=== PATIENT | male | born 2000 | race Hispanic/Latino ===

== ENCOUNTER 2021-02-13 00:20 | Emergency (ER) | payer MEDICAID, OTHER ==
[2021-02-13 00:51] LABS: BASOPHILS % (AUTO) 0.9 % (0.0-5.0); HEMATOCRIT 35.1 % (42-54); LYMPHOCYTES % (AUTO) 27.6 % (21.0-51.0); MEAN CORPUSCULAR HEMOGLOBIN 18.3 pg (27.0-33.0); MEAN CORPUSCULAR HGB CONC 27.9 g/dL (32.0-36.0); MEAN CORPUSCULAR VOLUME 65.5 fL (79-99); MONOCYTES % (AUTO) 8.1 % (3.0-13.0); PLATELET COUNT (AUTO) 527 K/uL (130-400); RED BLOOD CELL COUNT(AUTO) 5.36 MIL/uL (4.50-6.20); RED CELL DISTRIBUTION WIDTH 16.1 % (11.0-15.5); WHITE BLOOD COUNT (AUTO) 8.1 K/uL (4.8-10.8)
[2021-02-13 00:57] LABS: INR 0.99 (0.85-1.15); PROTHROMBIN TIME 10.8 SEC (9.6-11.6)
[2021-02-13 00:58] LABS: PARTIAL THROMBOPLASTIN TIME 26.8 SEC (26.3-35.5)
[2021-02-13 01:09] LABS: ALBUMIN 3.7 g/dL (3.5-5.0); BILIRUBIN,TOTAL 0.1 mg/dL (0.2-1.0); CREATININE 0.9 mg/dL (0.5-1.5); POTASSIUM 3.7 mmol/L (3.5-5.1); TOTAL PROTEIN, SERUM 8.3 g/dL (6.0-8.3)
== END 2021-02-13 03:06 | disposition home or self-care (01) ==
LOC: EDH 00:20
DX: K63.5 Polyp of colon (principal); K92.1 Melena
CPT/HCPCS: 36415; 80053; 85025; 85610; 85730

== ENCOUNTER 2022-11-03 22:19 | Emergency (ER) | payer OTHER ==
[~2022-11-03] VITALS: Ht 172.7 cm; Wt 68.0 kg
[2022-11-03 22:21] VITALS: BP 124/73
[2022-11-03] MEDS ORDERED: 0.9%NACL 1000ML 1,000 ML IV ONE (22:30)
[2022-11-03 22:59] LABS: BASOPHILS % (AUTO) 0.9 % (0.0-5.0); EOSINOPHILS % (AUTO) 2.4 % (0.0-8.0); HEMATOCRIT 34.9 % (42-54); LYMPHOCYTES % (AUTO) 26.3 % (21.0-51.0); MEAN CORPUSCULAR HEMOGLOBIN 19.4 pg (27.0-33.0); MEAN CORPUSCULAR HGB CONC 28.7 g/dL (32.0-36.0); MEAN CORPUSCULAR VOLUME 67.6 fL (79-99); MONOCYTES % (AUTO) 7.1 % (3.0-13.0); NEUTROPHILS % (AUTO) 62.9 % (40.0-77.0); PLATELET COUNT (AUTO) 555 K/uL (130-400); RED BLOOD CELL COUNT(AUTO) 5.16 MIL/uL (4.50-6.20); WHITE BLOOD COUNT (AUTO) 6.8 K/uL (4.8-10.8)
[2022-11-03 23:09] LABS: APPEARANCE,URINE CLEAR (CLEAR); BILIRUBIN,URINE NEGATIVE (NEGATIVE); COLOR,URINE YELLOW (YELLOW); GLUCOSE, URINE (UA) NEGATIVE (NEGATIVE); KETONES,URINE NEGATIVE (NEGATIVE); LEUKOCYTE ESTERASE ,URINE NEGATIVE Leu/uL (NEGATIVE); NITRATE,URINE NEGATIVE (NEGATIVE); OCCULT BLOOD,URINE NEGATIVE (NEGATIVE); PROTEIN,URINE 10 mg/dL (NEGATIVE); UROBILINOGEN,URINE 0.2 mg/dL (0.2-1.0)
[2022-11-03 23:19] LABS: CREATININE 0.7 mg/dL (0.5-1.5); POTASSIUM 3.5 mmol/L (3.5-5.1)
[2022-11-03 23:22] LABS: ALBUMIN 3.1 g/dL (3.5-5.0); TOTAL PROTEIN, SERUM 7.4 g/dL (6.0-8.3)
[2022-11-03] MEDS ORDERED: BACI1CAP6 PO (23:28)
[2022-11-03 23:35] LABS: AMPHET/METH SCREEN,URINE NEGATIVE (NEGATIVE); BARBITURATE SCREEN, URINE NEGATIVE (NEGATIVE); BENZODIAZEPINES SCREEN,URINE NEGATIVE (NEGATIVE); CANNABINOID SCREEN,URINE POSITIVE (NEGATIVE); COCAINE SCREEN,URINE NEGATIVE (NEGATIVE); OPIATE SCREEN,URINE NEGATIVE (NEGATIVE); PHENCYCLIDINE SCREEN,URINE NEGATIVE (NEGATIVE)
== END 2022-11-03 23:59 | disposition home or self-care (01) ==
LOC: EDH 22:19
DX: R55 Syncope and collapse (principal); R19.7 Diarrhea, unspecified; D64.9 Anemia, unspecified
CPT/HCPCS: 36415; 80053; 80305; 81003; 82270; 83690; 84484; 85025; 93005

== ENCOUNTER 2022-11-20 16:16 | Inpatient (IN) | payer OTHER ==
[~2022-11-20] VITALS: Ht 172.7 cm; Wt 65.9 kg
[~2022-11-20 16:16] MED LIST: BACI1CAP6 PO
[2022-11-20 18:54] LABS: BASOPHILS % (AUTO) 0.4 % (0.0-5.0); EOSINOPHILS % (AUTO) 1.5 % (0.0-8.0); LYMPHOCYTES % (AUTO) 20.6 % (21.0-51.0); MEAN CORPUSCULAR HEMOGLOBIN 18.9 pg (27.0-33.0); MEAN CORPUSCULAR HGB CONC 29.7 g/dL (32.0-36.0); MEAN CORPUSCULAR VOLUME 63.8 fL (79-99); MONOCYTES % (AUTO) 12.8 % (3.0-13.0); NEUTROPHILS % (AUTO) 64.1 % (40.0-77.0); PLATELET COUNT (AUTO) 513 K/uL (130-400); RED CELL DISTRIBUTION WIDTH 15.9 % (11.0-15.5); WHITE BLOOD COUNT (AUTO) 6.8 K/uL (4.8-10.8)
[2022-11-20 19:06] LABS: CREATININE 0.7 mg/dL (0.5-1.5); POTASSIUM 3.4 mmol/L (3.5-5.1)
[2022-11-20 19:10] LABS: APPEARANCE,URINE CLEAR (CLEAR); BILIRUBIN,URINE NEGATIVE (NEGATIVE); COLOR,URINE COLORLESS (YELLOW); GLUCOSE, URINE (UA) NEGATIVE (NEGATIVE); KETONES,URINE NEGATIVE (NEGATIVE); LEUKOCYTE ESTERASE ,URINE NEGATIVE Leu/uL (NEGATIVE); NITRATE,URINE NEGATIVE (NEGATIVE); OCCULT BLOOD,URINE NEGATIVE (NEGATIVE); PROTEIN,URINE NEGATIVE (NEGATIVE); UROBILINOGEN,URINE 0.2 mg/dL (0.2-1.0)
[2022-11-20 19:11] LABS: ALBUMIN 2.8 g/dL (3.5-5.0); TOTAL PROTEIN, SERUM 6.9 g/dL (6.0-8.3)
[2022-11-20 19:18] LABS: BACTERIA,URINE RARE /HPF (None Seen); RBC,URINE 0-1 /HPF (0-1); SQUAMOUS EPITHELIAL CELL,UR RARE /HPF (0-2); WBC,URINE 0-1 /HPF (0-1)
[2022-11-20] MEDS ORDERED: IOHEXOL 350 MG/ML 100ML INFUS..BTL IV ONE (20:52)
[2022-11-20] MEDS ORDERED: ZOSYN 3.375GM +NS 50ML IV ONE (22:00)
[2022-11-20] MEDS ORDERED: MORPHINE 2 MG SYG IM ONE (22:00)
[2022-11-20] MEDS ORDERED: ONDANSETRON 4MG INJ IVP ONE (22:00)
[2022-11-20] MEDS ORDERED: 0.9%NACL 1000ML 2,000 ML IV ONE (22:00)
[2022-11-20] MEDS ORDERED: LACTULOSE 20 GM/30 ML UDCUP PO PRN (22:30)
[2022-11-20] MEDS ORDERED: HYDRALAZINE 20MG/ML VIAL IV PRN (22:30)
[2022-11-20] MEDS ORDERED: CLONIDINE HCL 0.1 MG TABLET PO PRN (22:30)
[2022-11-20] MEDS ORDERED: TEMAZEPAM 15 MG CAPSULE PO PRN (22:30)
[2022-11-20] MEDS ORDERED: LABETALOL 20MG SYG IV PRN (22:30)
[2022-11-20] MEDS ORDERED: ACETAMINOPHEN 650 MG SUPPOSITORY RC PRN (22:30)
[2022-11-20] MEDS ORDERED: DOCUSATE SODIUM 100 MG CAP PO PRN (22:30)
[2022-11-20] MEDS ORDERED: ACETAMINOPHEN 325 MG TAB PO PRN (22:30)
[2022-11-20] MEDS ORDERED: GLUCAGON 1MG KIT 1 MG ML IM PRN (23:00)
[2022-11-20] MEDS ORDERED: POTASSIUM CHLORIDE 10% ELIXIR 20 MEQ/15 ML UDCUP PO PRN (23:00)
[2022-11-20] MEDS ORDERED: LIDOCAINE HCL-MPF 1% 2ML VIAL IV PRN (23:00)
[2022-11-20] MEDS ORDERED: POTASSIUM CHLORIDE 20MEQ/100ML 100 ML IV PRN (23:00)
[2022-11-20] MEDS ORDERED: MAGNESIUM 2GM PREMIX 50ML 50 ML IV PRN (23:00)
[2022-11-21] VITALS (7 sets, daily range): BP systolic 105–131; BP diastolic 59–74
[2022-11-21] MEDS: KCL 20 MEQ ERTAB PO PRN ×2 (01:13→05:11)
[2022-11-21] MEDS: LACTATED RINGERS 1000ML 1,000 ML IV SCH ×3 (01:14→20:09)
[2022-11-21] MEDS: ONDANSETRON 4MG INJ IVP PRN (02:27)
[2022-11-21] MEDS: MORPHINE 2 MG SYG IVP PRN ×2 (02:28→15:40)
[2022-11-21] MEDS: INSULIN HUMULIN R 100 UNIT/ML 3ML SQ SCH ×4 (05:12→20:48)
[2022-11-21 05:15] LABS: BASOPHILS % (AUTO) 0.5 % (0.0-5.0); EOSINOPHILS % (AUTO) 2.6 % (0.0-8.0); HEMATOCRIT 27.3 % (42-54); LYMPHOCYTES % (AUTO) 29.4 % (21.0-51.0); MEAN CORPUSCULAR HGB CONC 28.9 g/dL (32.0-36.0); MEAN CORPUSCULAR VOLUME 65.6 fL (79-99); MONOCYTES % (AUTO) 14.3 % (3.0-13.0); NEUTROPHILS % (AUTO) 52.9 % (40.0-77.0); PLATELET COUNT (AUTO) 474 K/uL (130-400); RED BLOOD CELL COUNT(AUTO) 4.16 MIL/uL (4.50-6.20); WHITE BLOOD COUNT (AUTO) 5.8 K/uL (4.8-10.8)
[2022-11-21 05:24] LABS: CREATININE 0.6 mg/dL (0.5-1.5); MAGNESIUM 1.7 mg/dL (1.80-2.40); PHOSPHORUS 4.3 mg/dL (2.5-4.9)
[2022-11-21] MEDS: ZOSYN 3.375GM +NS 50ML IV SCH ×3 (06:36→23:06)
[2022-11-21] MEDS: PANTOPRAZOLE 40 MG/VIAL IVP SCH ×2 (10:42→20:09)
[2022-11-21] MEDS ORDERED: BUPIVACAINE/PF 0.5% 30ML VIAL ONE (11:18)
[2022-11-21] MEDS ORDERED: DEXAMETHASONE SOD PHOSPHATE 10MG/ML 1ML VIAL ONE (13:37)
[2022-11-21] MEDS ORDERED: LIDOCAINE PF 100MG/5ML (2%) SYRINGE 5ML ONE (13:37)
[2022-11-21] MEDS ORDERED: SUCCINYLCHOLINE 200MG/10ML SYR ONE (13:37)
[2022-11-21] MEDS ORDERED: MIDAZOLAM HCL 1 MG/ML 2ML VIAL ONE (13:38)
[2022-11-21] MEDS ORDERED: PROPOFOL 10 MG/ML 20ML VIAL IV ONE (13:40)
[2022-11-21] MEDS ORDERED: ONDANSETRON 4MG INJ ONE ×2 (13:40→15:45)
[2022-11-21] MEDS ORDERED: GLYCOPYRROLATE 1 MG/5 ML SYRINGE ONE (13:40)
[2022-11-21] MEDS ORDERED: NEOSTIGMINE 5MG/5ML SYR IV ONE (13:41)
[2022-11-21] MEDS ORDERED: ROCURONIUM 10MG/1ML SYR 10 MG/ML ML ONE (13:41)
[2022-11-21] MEDS ORDERED: FENTANYL CITRATE PF 50 MCG/1 ML 2ML VIAL ONE (13:41)
[2022-11-21 15:16] LABS: % IRON SATURATION 4.3 % (30-44)
[2022-11-21 16:49] LABS: BASOPHILS % (AUTO) 1.1 % (0.0-5.0); EOSINOPHILS % (AUTO) 3.3 % (0.0-8.0); HEMATOCRIT 27.6 % (42-54); LYMPHOCYTES % (AUTO) 28.9 % (21.0-51.0); MEAN CORPUSCULAR HEMOGLOBIN 19.1 pg (27.0-33.0); MEAN CORPUSCULAR HGB CONC 28.6 g/dL (32.0-36.0); MEAN CORPUSCULAR VOLUME 66.7 fL (79-99); NEUTROPHILS % (AUTO) 51.5 % (40.0-77.0); PLATELET COUNT (AUTO) 443 K/uL (130-400); RED BLOOD CELL COUNT(AUTO) 4.14 MIL/uL (4.50-6.20); RED CELL DISTRIBUTION WIDTH 16.2 % (11.0-15.5); WHITE BLOOD COUNT (AUTO) 4.6 K/uL (4.8-10.8)
[2022-11-21 16:59] LABS: CREATININE 0.7 mg/dL (0.5-1.5)
[2022-11-21 17:00] LABS: INR 0.99 (0.85-1.15); PROTHROMBIN TIME 10.8 SEC (9.6-11.6)
[2022-11-21] MEDS ORDERED: BISACODYL 5 MG TABLET.DR PO SCH ×2 (17:00→18:00)
[2022-11-21 18:17] LABS: AMPHET/METH SCREEN,URINE NEGATIVE (NEGATIVE); BARBITURATE SCREEN, URINE NEGATIVE (NEGATIVE); BENZODIAZEPINES SCREEN,URINE NEGATIVE (NEGATIVE); CANNABINOID SCREEN,URINE NEGATIVE (NEGATIVE); COCAINE SCREEN,URINE NEGATIVE (NEGATIVE); OPIATE SCREEN,URINE NEGATIVE (NEGATIVE); PHENCYCLIDINE SCREEN,URINE NEGATIVE (NEGATIVE)
[2022-11-21] MEDS: IRON SUCROSE COMPLEX 300 MG in 0.9% NACL 250ML IV SCH (18:28)
[2022-11-21] MEDS ORDERED: COMPOUND IV MISC 1 EACH IVSOLN MISC PRN (18:30)
[2022-11-21] MEDS: DEXTROSE 50%-WATER 50 ML DISP.SYRIN IV PRN (20:53)
[2022-11-22 04:00] VITALS: BP 143/76
[2022-11-22 05:19] LABS: BASOPHILS % (AUTO) 0.7 % (0.0-5.0); EOSINOPHILS % (AUTO) 1.6 % (0.0-8.0); LYMPHOCYTES % (AUTO) 21.5 % (21.0-51.0); MEAN CORPUSCULAR HEMOGLOBIN 18.5 pg (27.0-33.0); MEAN CORPUSCULAR HGB CONC 28.6 g/dL (32.0-36.0); MEAN CORPUSCULAR VOLUME 64.7 fL (79-99); MONOCYTES % (AUTO) 13.7 % (3.0-13.0); PLATELET COUNT (AUTO) 461 K/uL (130-400); RED BLOOD CELL COUNT(AUTO) 4.33 MIL/uL (4.50-6.20); RED CELL DISTRIBUTION WIDTH 16.1 % (11.0-15.5); WHITE BLOOD COUNT (AUTO) 5.5 K/uL (4.8-10.8)
[2022-11-22 06:00] LABS: CREATININE 0.8 mg/dL (0.5-1.5); POTASSIUM 3.7 mmol/L (3.5-5.1)
[2022-11-22] MEDS: INSULIN HUMULIN R 100 UNIT/ML 3ML SQ SCH ×4 (06:01→21:00)
[2022-11-22] MEDS ORDERED: IOHEXOL 350 MG/ML 100ML INFUS..BTL IV ONE (08:06)
[2022-11-22 08:45] VITALS: BP 122/73
[2022-11-22] MEDS: LACTATED RINGERS 1000ML 1,000 ML IV SCH ×2 (09:30→15:39)
[2022-11-22] MEDS: POLYETHYLENE GLYCOL 3350 17 GM POWD.PACK PO SCH (09:34)
[2022-11-22] MEDS: PANTOPRAZOLE 40 MG/VIAL IVP SCH ×2 (09:34→22:27)
[2022-11-22] MEDS: ONDANSETRON 4MG INJ IVP PRN (10:15)
[2022-11-22 12:25] VITALS: BP 120/73
[2022-11-22] MEDS ORDERED: PEG 3350/NA SULF,BICARB,CL/KCL 4000 ML SOLN PO ONE ×2 (15:00)
[2022-11-22] MEDS: ZOSYN 3.375GM +NS 50ML IV SCH ×2 (15:33→22:27)
[2022-11-22 17:10] VITALS: BP 151/93
[2022-11-22] MEDS: IRON SUCROSE COMPLEX 300 MG in 0.9% NACL 250ML IV SCH (17:40)
[2022-11-22] MEDS: DEXTROSE 50%-WATER 50 ML DISP.SYRIN IV PRN (17:40)
[2022-11-22 20:00] VITALS: BP 120/72
[2022-11-23] VITALS (15 sets, daily range): BP systolic 97–140; BP diastolic 52–74
[2022-11-23] MEDS: LACTATED RINGERS 1000ML 1,000 ML IV SCH ×4 (01:50→22:41)
[2022-11-23] MEDS: MORPHINE 2 MG SYG IVP PRN (05:09)
[2022-11-23 05:32] LABS: EOSINOPHILS % (AUTO) 2.5 % (0.0-8.0); HEMATOCRIT 29.7 % (42-54); LYMPHOCYTES % (AUTO) 41.2 % (21.0-51.0); MEAN CORPUSCULAR HEMOGLOBIN 18.8 pg (27.0-33.0); MEAN CORPUSCULAR HGB CONC 29.3 g/dL (32.0-36.0); MONOCYTES % (AUTO) 15.7 % (3.0-13.0); NEUTROPHILS % (AUTO) 36.5 % (40.0-77.0); PLATELET COUNT (AUTO) 517 K/uL (130-400); RED BLOOD CELL COUNT(AUTO) 4.64 MIL/uL (4.50-6.20); RED CELL DISTRIBUTION WIDTH 16.7 % (11.0-15.5); WHITE BLOOD COUNT (AUTO) 4.8 K/uL (4.8-10.8)
[2022-11-23 05:46] LABS: CREATININE 0.9 mg/dL (0.5-1.5); POTASSIUM 3.2 mmol/L (3.5-5.1)
[2022-11-23] MEDS: ZOSYN 3.375GM +NS 50ML IV SCH ×3 (06:52→22:41)
[2022-11-23] MEDS: INSULIN HUMULIN R 100 UNIT/ML 3ML SQ SCH ×2 (07:22→11:30)
[2022-11-23] MEDS ORDERED: LIDOCAINE PF 100MG/5ML (2%) SYRINGE 5ML ONE (08:09)
[2022-11-23] MEDS ORDERED: PROPOFOL 10 MG/ML 20ML VIAL IV ONE (08:09)
[2022-11-23] MEDS: POLYETHYLENE GLYCOL 3350 17 GM POWD.PACK PO SCH ×2 (09:00→09:47)
[2022-11-23] MEDS: PANTOPRAZOLE 40 MG/VIAL IVP SCH ×2 (09:47→21:46)
[2022-11-23] MEDS ORDERED: PHARMACY COMMUNICATION MISC SCH (11:30)
[2022-11-23] MEDS: SOLU-MEDROL 40MG VIAL IVP SCH ×2 (11:49→18:40)
[2022-11-23] MEDS ORDERED: 0.9%NACL 1000ML 1,000 ML IV ONE (13:37)
[2022-11-23] MEDS: KCL 20 MEQ ERTAB PO PRN ×3 (16:24→22:40)
[2022-11-23] MEDS: IRON SUCROSE COMPLEX 300 MG in 0.9% NACL 250ML IV SCH (16:27)
[2022-11-23] MEDS: MESALAMINE 4 GM/60 ML BOTTLE RC SCH (21:46)
[2022-11-24] VITALS: BP 118/70
[2022-11-24] MEDS: SOLU-MEDROL 40MG VIAL IVP SCH ×3 (02:58→19:19)
[2022-11-24 04:00] VITALS: BP 110/71
[2022-11-24 04:49] LABS: BASOPHILS % (AUTO) 0.2 % (0.0-5.0); HEMATOCRIT 33.7 % (42-54); LYMPHOCYTES % (AUTO) 14.5 % (21.0-51.0); MEAN CORPUSCULAR HEMOGLOBIN 18.8 pg (27.0-33.0); MEAN CORPUSCULAR HGB CONC 27.9 g/dL (32.0-36.0); MEAN CORPUSCULAR VOLUME 67.5 fL (79-99); MONOCYTES % (AUTO) 2.1 % (3.0-13.0); NEUTROPHILS % (AUTO) 81.7 % (40.0-77.0); PLATELET COUNT (AUTO) 370 K/uL (130-400); RED BLOOD CELL COUNT(AUTO) 4.99 MIL/uL (4.50-6.20); RED CELL DISTRIBUTION WIDTH 17.3 % (11.0-15.5); WHITE BLOOD COUNT (AUTO) 4.7 K/uL (4.8-10.8)
[2022-11-24 05:00] LABS: CREATININE 0.6 mg/dL (0.5-1.5); POTASSIUM 4.3 mmol/L (3.5-5.1)
[2022-11-24] MEDS: ZOSYN 3.375GM +NS 50ML IV SCH ×3 (06:57→23:07)
[2022-11-24 08:25] VITALS: BP 108/68
[2022-11-24] MEDS: PANTOPRAZOLE 40 MG/VIAL IVP SCH ×2 (09:40→20:55)
[2022-11-24] MEDS: POLYETHYLENE GLYCOL 3350 17 GM POWD.PACK PO SCH (09:40)
[2022-11-24 12:50] VITALS: BP 132/86
[2022-11-24 16:00] VITALS: BP 94/62
[2022-11-24 20:21] VITALS: BP 93/58
[2022-11-24] MEDS: MESALAMINE 4 GM/60 ML BOTTLE RC SCH (20:55)
[2022-11-25 00:06] VITALS: BP 103/55
[2022-11-25] MEDS: SOLU-MEDROL 40MG VIAL IVP SCH ×2 (03:45→11:43)
[2022-11-25 04:15] VITALS: BP 105/63
[2022-11-25] MEDS: ZOSYN 3.375GM +NS 50ML IV SCH (06:41)
[2022-11-25 08:03] VITALS: BP 115/66
[2022-11-25] MEDS: POLYETHYLENE GLYCOL 3350 17 GM POWD.PACK PO SCH (09:53)
[2022-11-25] MEDS: PANTOPRAZOLE 40 MG/VIAL IVP SCH (09:53)
[2022-11-25 11:20] VITALS: BP 122/68
[2022-11-25] MEDS ORDERED: PRED20TA3 PO (12:24)
== END 2022-11-25 14:01 | disposition home or self-care (01) | DRG 391 ==
LOC: EDH 16:16 → OBSVTOIN 16:17 → EDHIP 16:17 → 4AH 11-21 00:19
PROVIDERS: ADMIT Internal Medicine Pulmonary Disease; ATTEND Internal Medicine Pulmonary Disease
PROC: 0DBN8ZX Excision of Sigmoid Colon, Via Natural or Artificial Opening Endoscopic, Diagnostic (ICD-10-PCS; principal; 2022-11-23)
DX: K58.9 Irritable bowel syndrome, unspecified (principal); U07.1 COVID-19; K92.1 Melena; D50.9 Iron deficiency anemia, unspecified; K59.00 Constipation, unspecified; K64.9 Unspecified hemorrhoids; F17.200 Nicotine dependence, unspecified, uncomplicated; G89.29 Other chronic pain
CPT/HCPCS: 36415; 45380; 71045; 74178; 80048; 80053; 80305; 81001; 82306; 82525; 82746; 82948; 83540; 83550; 83605; 83690; 83735; 83993; 84100; 84425; 84630; 85025; 85378; 85610; 86038; 86140; 86160; 86255; 86431; 86701; 86850; 86900; 86901; 86923; 87390; 87507; 87635; 93970; C9113; C9803; G0378; J0330; J1100; J1756; J2001; J2250; J2405; J2543; J2704; J2710; J2920; J3010; J3490; J7030; J7050; J7070; J7120; Q9967

== ENCOUNTER 2023-10-31 00:03 | Emergency (ER) | payer OTHER, SELFPAY ==
[~2023-10-31] VITALS: Ht 172.7 cm; Wt 83.9 kg
[~2023-10-31 00:03] MED LIST changes: +PRED20TA3 PO
[2023-10-31 00:16] VITALS: TEMP 99.9
[2023-10-31] MEDS ORDERED: ACETAMINOPHEN 500 MG TABLET PO ONE (00:30)
[2023-10-31 00:41] LABS: RAPID GROUP A STREP negative (NEGATIVE)
[2023-10-31 00:46] LABS: SARS-CoV-2, RNA, NAAT NEGATIVE SARS CoV-2 (NEGATIVE)
[2023-10-31 00:52] LABS: INFLUENZA TYPE A Negative For Type A (NEGATIVE)
[2023-10-31 00:56] LABS: INFLUENZA TYPE B Positive For Type B (NEGATIVE)
[2023-10-31] MEDS ORDERED: OSEL75 PO (01:23)
[2023-10-31] MEDS ORDERED: BENZ-39 PO (01:23)
[2023-10-31 01:44] VITALS: BP 120/68; PULSE 90; RESP 14; O2SAT 98
== END 2023-10-31 01:45 | disposition home or self-care (01) ==
LOC: EDH 00:03
DX: J10.1 Influenza due to other identified influenza virus with other respiratory manifestations (principal); Z20.822 Contact with and (suspected) exposure to COVID-19; Z79.899 Other long term (current) drug therapy
CPT/HCPCS: 99283; 87635; 87880; 87804 ×2; C9803

== ENCOUNTER 2025-06-28 12:33 | Emergency (ER) | payer BC ==
[~2025-06-28] VITALS: Ht 172.7 cm; Wt 88.5 kg
[~2025-06-28 12:33] MED LIST changes: +BENZ-39 PO; +OSEL75 PO
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
[2025-06-28] MEDS: CYCLOBENZAPRINE HCL 10 MG TABLET PO ONE (12:57)
[2025-06-28 13:00] VITALS: BP 151/88; PULSE 94; RESP 18; TEMP 98.1; O2SAT 100
[2025-06-28] MEDS ORDERED: PRED20TA3 PO (13:29)
[2025-06-28] MEDS ORDERED: IBUP-2077 PO (13:29)
[2025-06-28] MEDS ORDERED: CYCL-309 PO (13:29)
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
== END 2025-06-28 13:33 | disposition home or self-care (01) ==
LOC: EDH 12:33
DX: G89.29 Other chronic pain (principal); M54.50 Low back pain, unspecified; Z79.52 Long term (current) use of systemic steroids; Z79.899 Other long term (current) drug therapy
CPT/HCPCS: 99284; 72100; 96372; J1100